=== PATIENT | male | born 1965 | race Caucasian/White ===

== ENCOUNTER 2016-11-18 18:33 | Emergency (ER) | payer BC ==
[~2016-11-18] VITALS: Ht 168.9 cm; Wt 80.0 kg
[~2016-11-18 18:33] MED LIST: ALLOPURINOL100 MG PO; BP MED PO; CIPROFLOXACN250 MG PO; CIPROFLOXACN500 MG PO; DILAUDID 2MG2 MG/TA1 PO; FLEXERIL10 MG PO; FLOMAX0.4 M1 PO; GARLIC100 MG PO; GARLIC200 MG PO; KLONOPIN1 MG PO; LORTAB 10-325 M1 TAB PO; LOSARTAN POTASS25 MG PO; NAPROSYN500 MG PO; NEOMYCIN/POLYMYXIN/G AU; NO HOME MEDS; OMEGA 31000 MG PO; POTASSIUM CITR540 MG PO; POTASSIUM CITRATE PO; XANAX0.5 MG PO
[2016-11-18 19:26] LABS: HEMATOCRIT 43.8 % (39.0-50.0); HEMOGLOBIN 14.9 g/dl (14.0-18.0); IMMATURE GRANULOCYTES 0.4 % (0.0-1.0); MEAN CELL VOLUME 85.2 fL CALC (80.0-100.0); NEUT# 6.44 thou/uL (1.82-7.42); RED BLOOD COUNT 5.14 mill/uL (4.70-6.10); RED CELL DISTRI WIDTH 11.9 % (11.5-15.5)
[2016-11-18 19:40] LABS: ALBUMIN 4.3 g/dL (3.2-5.0); ALKALINE PHOSPHATASE 67 u/l (38-126); ANION GAP 17 (6-22 (CALC)); BILIRUBIN, TOTAL 0.9 mg/dL (0.0-1.4); BUN 15 mg/dL (9-20); BUN/CREATININE RATIO 12 (12-20 (CALC)); CALCIUM 9.1 mg/dL (8.4-10.2); CARBON DIOXIDE 26 mmol/l (22-30); CHLORIDE 105 mmol/l (95-108); CREATININE 1.3 mg/dL (0.7-1.3); GFR 58 ML/MIN (>=60 (CALC)); GFR FOR AFR.AMER. > 60 ML/MIN (>=60 (CALC)); GLUCOSE 105 mg/dL (75-110); SGOT/AST 22 u/l (17-59); SGPT/ALT 34 u/l (21-72); SODIUM 143 mmol/l (137-146); TOTAL PROTEIN 7.3 g/dL (6.3-8.2)
[2016-11-18 19:43] LABS: PROTHROMBIN TIME 11.2 SECONDS (9.0-12.5)
[2016-11-18] MEDS ORDERED: CLARITIN10 M1 PO (20:22)
[2016-11-18] MEDS ORDERED: CEPHALEXIN500 MG PO (20:22)
[2016-11-18 20:30] VITALS: BP 156/95
== END 2016-11-18 20:30 | disposition home or self-care (01) | DRG 151 ==
LOC: ED 18:33
PROVIDERS: Emergency Medicine
PROC: 2Y41X5Z Packing of Nasal Region using Packing Material (ICD-10-PCS; principal; 2016-11-18)
DX: R04.0 Epistaxis (principal); J32.9 Chronic sinusitis, unspecified